=== PATIENT | male | born 1950 | race Caucasian/White ===

== ENCOUNTER 2022-11-14 10:19 | Outpatient (CLI) | payer MEDICARE, BC, SELFPAY | END 2022-11-14 10:20 | disposition home or self-care (01) | LOC: NFLDREF 11-16 11:02 | PROVIDERS: PCP Family Medicine; Referring Provider Family Medicine; Visit Provider Family Medicine | DX: Z00.00 Encounter for general adult medical examination without abnormal findings (principal); E78.5 Hyperlipidemia, unspecified; I10 Essential (primary) hypertension; E87.1 Hypo-osmolality and hyponatremia | CPT/HCPCS: 80053; 80061 ==

== ENCOUNTER 2023-10-09 08:18 | Outpatient (CLI) | payer MEDICARE, BC, SELFPAY ==
--- OUTSIDE RECORDS SUMMARY | 2023-10-09 13:53 | XMS_ITS | Clinical Summary ---
Author Name Unknown Organization [facility] Address [place], [place] [address] Care Team Providers Care Automobile Damage Appraiser Name Role Phone Eligio Marshall MD Primary Care Provider Allergies No known active allergies Medications Medication Sig Dispensed Refills Start Date End Date Status lisinopril (PRINIVIL; ZESTRIL) 20 mg tabletIndications:Unsp ecified essential hypertension Take 1 tablet by mouth once daily. 90 tablet 3 03/30/2011 Active Active Problems Problem Noted Date Diagnosed Date Unspecified essential hypertension 05/19/2007 Immunizations Name Administration Dates Next Due Td (Age >=7 Years) 02/24/2002 Family History Medical History Relation Name Comments Other Father alzheimers Hypertension Mother Relation Name Status Comments Father Mother Alive Social History Tobacco Use Types Packs/Day Years Used Date Smoking Tobacco: Former Smokeless Tobacco: Never Alcohol Use Standard Drinks/Week Comments Yes 0 (1 standard drink = 0.6 oz pur e alcohol) 2-3 glasses red wine nightly Sex and Gender Information Value Date Recorded Sex Assigned at Not on file Gender Identity Not on file Sexual Orientation Not on file Obstetrics History Last Filed Vital Signs Vital Sign Reading Time Taken Comments Blood Pressure 118/77 03/30/2011 1:35 PM CDT Pulse 80 03/30/2011 1:35 PM CDT Temperature 36.8 ??C (98.2 ??F) 03/31/2010 8:30 AM CD T Respiratory Rate - - Oxygen Saturation 97% 03/31/2010 8:30 AM CDT Inhaled Oxygen Concentration - - Weight 82.1 kg (181 lb) 03/30/2011 1:35 PM CDT Height 177.8 cm (5' 10) 03/31/2010 8:30 AM CDT Body Mass Index 25.97 03/31/2010 8:30 AM CDT Plan of Treatment Health Maintenance Due Date Last Done Comments COVID-19 vaccine series (#1) 1948 Tdap 1959 Depression screening for age 12+ 1960 BMI (ht and wt on same day) for age 18+ 1966 Hepatitis C screening for age 18-79 1966 Colonoscopy through age 75 1993 Lipids for age 45-75 1993 Zoster (shingles) series for age 50+ (1 of 2) 06/23/19 98 Tetanus booster 02/25/2012 02/24/2002 Pneumococcal series for age 65+ (1 of 1 - PCV) 013 Influenza for age 65+ 05/03/2023 Care Teams Automobile Damage Appraiser Relationship Specialty Start Date End Date Eligio Marshall MD [address] [place] [address] PCP - General 09/03/08
== END 2023-10-09 08:19 | disposition home or self-care (01) ==
LOC: NFLDREF 13:50
PROVIDERS: PCP Family Medicine; Referring Provider Family Medicine; Visit Provider Family Medicine
DX: E78.5 Hyperlipidemia, unspecified (principal)
CPT/HCPCS: 80053; 80061

== ENCOUNTER 2024-10-29 10:03 | Outpatient (CLI) | payer MEDICARE, BC, SELFPAY | END 2024-10-29 10:04 | disposition home or self-care (01) | LOC: NFLDREF 10-30 09:40 | PROVIDERS: PCP Family Medicine; Referring Provider Family Medicine; Visit Provider Family Medicine | DX: E78.5 Hyperlipidemia, unspecified (principal); I10 Essential (primary) hypertension | CPT/HCPCS: 80053; 80061 ==

== ENCOUNTER 2025-07-26 12:04 | Outpatient (CLI) | payer MEDICARE, BC, SELFPAY ==
--- NOTE | 2025-07-26 13:29 | P.ANES_ITS ---
Anesthesia Charges Start Date/Time Anesthesia Start Date: 07/26/25 Anesthesia Start Time: 13:05 Stop Date/Time Anesthesia Stop Date: 07/26/25 Anesthesia Stop Time: 13:26 Summary Extremes of Age - Over 70 or under 1: COUNTY AGRICULTURAL AGENT Coding CPT Codes CPT Codes: ANES LWR INTST NDSC NOS - 45441 ([id number]) P3 - PATIENT W/SEVERE SYS DISEASE, QK - JOURNEYMAN LEVEL ACOUSTIC ANALYST 2-4 CNCRNT ANES PROC, QX - COUNTY AGRICULTURAL AGENT SVC W/ MD MED DIRECTION Additional Codes: Summary - Extremes of Age - Over 70 or under 1: COUNTY AGRICULTURAL AGENT ([id number])
--- NOTE | 2025-07-26 13:29 | W.ANESCHARGE ---
Anesthesia Charges Start Date/Time Anesthesia Start Date: 07/26/25 Anesthesia Start Time: 13:05 Stop Date/Time Anesthesia Stop Date: 07/26/25 Anesthesia Stop Time: 13:26 Summary Extremes of Age - Over 70 or under 1: CONCRETE WALL GRINDER OPERATOR Coding CPT Codes CPT Codes: ANES LWR INTST NDSC NOS - [id number] ([id number]) P3 - PATIENT W/SEVERE SYS DISEASE, QK - ASSISTANT PRESSMAN 2-4 CNCRNT ANES PROC, QX - CONCRETE WALL GRINDER OPERATOR SVC W/ MD MED DIRECTION Additional Codes: Summary - Extremes of Age - Over 70 or under 1: CONCRETE WALL GRINDER OPERATOR ([id number])
--- NOTE | 2025-07-26 14:22 | W.ANESCHARGE ---
Anesthesia Charges Start Date/Time Anesthesia Start Date: 07/26/25 Anesthesia Start Time: 13:05 Stop Date/Time Anesthesia Stop Date: 07/26/25 Anesthesia Stop Time: 13:26 Summary Extremes of Age - Over 70 or under 1: MDA Coding CPT Codes CPT Codes: ANES LWR INTST NDSC NOS - [id number] ([id number]) QK - MIDDLE SCHOOL HISTORY TEACHER 2-4 CNCRNT ANES PROC, QX - LEAD WAREHOUSE ASSOCIATE SVC W/ MD MED DIRECTION, P3 - PATIENT W/SEVERE SYS DISEASE Additional Codes: Summary - Extremes of Age - Over 70 or under 1: MDA ([id number])
== END 2025-07-26 12:05 | disposition home or self-care (01) ==
LOC: OP CLINIC 12:04
PROVIDERS: PCP Family Medicine; Visit Provider Internal Medicine
DX: Z12.11 Encounter for screening for malignant neoplasm of colon (principal); D12.2 Benign neoplasm of ascending colon
CPT/HCPCS: 00811; 00812; 45380; 99100; J2704